=== PATIENT | female | born 2000 | race Caucasian/White ===

== ENCOUNTER → 2019-03-05 12:56 | Outpatient (BNVA) | payer BC, SELFPAY | PROVIDERS: Family Provider Nurse Practitioner Family; PCP Nurse Practitioner Family; Visit Provider Counselor Professional | DX: F33.2 Major depressive disorder, recurrent severe without psychotic features (principal); F41.1 Generalized anxiety disorder | CPT/HCPCS: 90834 ==

== ENCOUNTER → 2019-04-01 14:45 | Outpatient (BNVA) | payer BC, SELFPAY | PROVIDERS: Family Provider Nurse Practitioner Family; PCP Nurse Practitioner Family; Visit Provider Counselor Professional | DX: F33.2 Major depressive disorder, recurrent severe without psychotic features (principal); F41.1 Generalized anxiety disorder | CPT/HCPCS: 90834 ==

== ENCOUNTER → 2019-04-29 14:48 | Outpatient (BNVA) | payer BC, SELFPAY | PROVIDERS: Family Provider Nurse Practitioner Family; PCP Nurse Practitioner Family; Visit Provider Counselor Professional | DX: F41.1 Generalized anxiety disorder (principal) | CPT/HCPCS: 90834 ==

== ENCOUNTER → 2019-12-02 14:14 | Outpatient (BNVA) | payer BC, SELFPAY | PROVIDERS: Family Provider Nurse Practitioner Family; PCP Nurse Practitioner Family; Visit Provider Nurse Practitioner | DX: R00.2 Palpitations (principal); F41.9 Anxiety disorder, unspecified; F32.9 Major depressive disorder, single episode, unspecified | CPT/HCPCS: 80053; 84443; 85025; 86800 ==

== ENCOUNTER → 2021-05-31 13:12 | Outpatient (BNVA) | payer OTHER, SELFPAY | PROVIDERS: PCP Family Medicine; Visit Provider Nurse Practitioner Psychiatric/Mental Health | DX: Z03.89 Encounter for observation for other suspected diseases and conditions ruled out (principal); Z79.899 Other long term (current) drug therapy | CPT/HCPCS: 80053; 80061; 83036; 84443 ==

== ENCOUNTER → 2021-07-05 11:31 | Outpatient (BNVA) | payer OTHER, SELFPAY | PROVIDERS: PCP Family Medicine; Visit Provider Nurse Practitioner Family | DX: M25.572 Pain in left ankle and joints of left foot (principal); M25.472 Effusion, left ankle | CPT/HCPCS: 73610 ==

== ENCOUNTER → 2021-08-16 11:05 | Outpatient (BNVA) | payer OTHER, SELFPAY | PROVIDERS: PCP Family Medicine; Visit Provider Nurse Practitioner Family | DX: J02.9 Acute pharyngitis, unspecified (principal); R05.9 Cough, unspecified; Z20.822 Contact with and (suspected) exposure to COVID-19 | CPT/HCPCS: 87635 ==

== ENCOUNTER → 2022-01-17 14:26 | Outpatient (BNVA) | payer OTHER, SELFPAY | PROVIDERS: PCP Family Medicine; Visit Provider Nurse Practitioner Family | DX: M54.9 Dorsalgia, unspecified (principal); B37.31 Acute candidiasis of vulva and vagina; R10.9 Unspecified abdominal pain; R19.7 Diarrhea, unspecified | CPT/HCPCS: 81000; 81025 ==

== ENCOUNTER → 2022-04-24 08:51 | Outpatient (BNVA) | payer BC, MEDICAID, SELFPAY | PROVIDERS: PCP Family Medicine; Visit Provider Nurse Practitioner Family | DX: R05.9 Cough, unspecified (principal); J06.9 Acute upper respiratory infection, unspecified | CPT/HCPCS: 87486; 87581; 87633 ==

== ENCOUNTER → 2022-06-04 10:58 | Outpatient (BNVA) | payer BC, MEDICAID, SELFPAY | PROVIDERS: PCP Family Medicine; Visit Provider Nurse Practitioner Family | DX: R05.9 Cough, unspecified (principal); J06.9 Acute upper respiratory infection, unspecified | CPT/HCPCS: 87486; 87581; 87633 ==

== ENCOUNTER → 2022-07-22 15:59 | Outpatient (BNVA) | payer BC, SELFPAY | PROVIDERS: PCP Family Medicine; Visit Provider Nurse Practitioner Psychiatric/Mental Health | DX: Z79.899 Other long term (current) drug therapy (principal); F33.1 Major depressive disorder, recurrent, moderate; F41.1 Generalized anxiety disorder; F42.9 Obsessive-compulsive disorder, unspecified | CPT/HCPCS: 81025 ==

== ENCOUNTER → 2022-09-04 08:22 | Outpatient (BNVA) | payer BC, SELFPAY | PROVIDERS: PCP Family Medicine; Visit Provider Nurse Practitioner Psychiatric/Mental Health | DX: F42.9 Obsessive-compulsive disorder, unspecified (principal); Z79.899 Other long term (current) drug therapy | CPT/HCPCS: 80053; 80061; 83036 ==

== ENCOUNTER → 2023-03-13 13:19 | Outpatient (BNVA) | payer BC, MEDICAID, SELFPAY | PROVIDERS: PCP Family Medicine; Visit Provider Nurse Practitioner Family | DX: R05.9 Cough, unspecified (principal); J98.8 Other specified respiratory disorders | CPT/HCPCS: 87400; 87426 ==

== ENCOUNTER → 2023-05-20 15:15 | Outpatient (BNVA) | payer SELFPAY | PROVIDERS: PCP Family Medicine; Visit Provider Nurse Practitioner Family | DX: R50.9 Fever, unspecified (principal); R05.9 Cough, unspecified; J06.9 Acute upper respiratory infection, unspecified; R05.2 Subacute cough | CPT/HCPCS: 71046; 87400; 87426 ==

== ENCOUNTER → 2024-01-05 10:25 | Outpatient (BNVA) | payer BC, SELFPAY | PROVIDERS: PCP Family Medicine; Visit Provider Clinical Nurse Specialist Adult Health | DX: J02.9 Acute pharyngitis, unspecified (principal); J06.9 Acute upper respiratory infection, unspecified | CPT/HCPCS: 87071; 87400; 87426; 87880 ==

== ENCOUNTER → 2024-03-31 09:51 | Outpatient (BNVA) | payer BC, SELFPAY | PROVIDERS: PCP Family Medicine; Visit Provider Clinical Nurse Specialist Adult Health | DX: J06.9 Acute upper respiratory infection, unspecified (principal) | CPT/HCPCS: 87400 ==

== ENCOUNTER 2024-04-14 18:00 | Emergency (ER) | payer BC, MEDICAID, SELFPAY ==
[2024-04-14 18:07] VITALS: BP 108/69; PULSE 145; RESP 20; TEMP 36.9; O2SAT 96; BMI 37.3
--- NOTE | 2024-04-14 18:15 | ECG_ITS ---
[employer] Test Date: 2024-04-14 Pat Name: Jessika Uribe Department: Room: Gender: Female Environmental Aid: : 2000 Requested By: Carol Dixon Order Number: [id number] Emanuel MD: Mohsen Moore M.D. Measurements Intervals [place] Rate: 131 P: 50 KS: 122 QRS: 89 QRSD: 85 T: -60 QT: 333 QTc: 492 Interpretive Statements SINUS TACHYCARDIA ST DEVIATION AND MODERATE T-WAVE ABNORMALITY, CONSIDER ANTEROLATERAL ISCHEMIA [-0.1+ mV T-WAVE IN V3-V6] ST DEVIATION AND MODERATE T-WAVE ABNORMALITY, CONSIDER INFERIOR ISCHEMIA [-0.1+ mV T-WAVE IN II/aVF] Compared to ECG 09/14/2016 23:40:48 T-wave abnormality now present Possible ischemia now present Sinus rhythm no longer present Electronically Signed On 04-14-2024 18:17:09 AGRICULTURAL EXTENSION OFFICER by Mohsen Moore M.D. [email or web address]
[2024-04-14 18:48] LABS: Basophils % 0.1 %; Hematocrit 48.4 % (36-47); Lymphocytes # 0.5 10^3/uL (0.8-4.8); Lymphocytes % 5.4 %; Mean Corpuscular HGB Conc 32.9 g/dL (30-55); Mean Corpuscular Hemoglobin 26.5 pg (27-33); Mean Corpuscular Volume 80.7 fl (85-98); Mean Platelet Volume 9.4 fL (7.4-10.4); Monocytes # 0.7 10^3/uL (0.2-0.9); Monocytes % 7.1 %; Neutrophils # 8.23 10^3/uL (1.8-7.7); Nucleated Red Blood Cells % 0 %; Platelet Count 340 10^3/cmm (157-399); Red Cell Distribution Width 12.3 % (12.1-15.1); White Blood Count 9.46 10^3/uL (3.29-11.43)
[2024-04-14 19:05] LABS: HCG, Serum Qual Negative (Negative)
[2024-04-14 19:09] VITALS: BP 124/91; PULSE 110; RESP 16; O2SAT 98
[2024-04-14 19:13] LABS: Alanine Aminotransferase 22 U/L (0-33); Alkaline Phosphatase 73 U/L (35-105); Anion Gap 19.4 (5-19); Aspartate Amino Transferase 21 U/L (0-32); Blood Urea Nitrogen 13 mg/dL (6-20); Calcium 8.2 mg/dL (8.5-10.5); Carbon Dioxide 17 mmol/L (22-29); Chloride 102 mmol/L (98-107); Globulin 2.8 g/dL (1.3-4.6); Glucose 109 mg/dL (65-115); Lipase 20 U/L (13-60); Magnesium 1.8 mg/dL (1.7-2.3); Osmolality Calculated 281 mOsm/kg (285-295); Potassium 3.4 mmol/L (3.5-5.1); Sodium 135 mmol/L (136-145); Total Bilirubin 0.5 mg/dL (0.15-1.2); Total Protein 6.8 g/dL (6.6-8.7)
--- NOTE | 2024-04-14 19:19 | ED_ITS ---
HPI - Abdominal Pain 2 General: Chief Complaint: Abdominal Pain Stated Complaint: severe abd pain n/v/d Time Seen by Provider: 04/14/24 19:16 History of Present Illness: Patient presents to the ER with lower abdominal pain and pelvic cramping along with nausea vomiting. This started yesterday morning has been constant but has waxed and waned in severity. Patient was seen at the [facility] today and given a Toradol shot and a Zofran tablet with that shot did not help the pain any and she vomited the tablet up so she is still nauseous. She was given a test which was negative. Patient has had no abdominal surgery. Related Data Home Medications ?Medication ?Instructions ?Recorded ?Confirmed levothyroxine 13 mcg capsule 25 mcg PO DAILY 01/31/21 04/14/24 Previous Rx's ?Medication ?Instructions ?Recorded fluticasone propionate 50 2 spray intranasal DAILY #15 .8 mL 02/09/20 mcg/actuation nasal spray,suspension (Allergy Relief (fluticasone)) cetirizine 10 mg tablet (Zyrtec) 10 mg PO DAILY #30 ta bs 02/29/20 buspirone 10 mg tablet 10 mg PO BID #180 tabs 01/08 citalopram 20 mg tablet (Celexa) 20 mg PO .morning #90 tabs 01/09/24 hydrocodone 5 mg-acetaminophen 325 1 tab PO Q6H PRN pa in #14 tabs 04/14/24 mg tablet ondansetron 4 mg disintegrating 4 mg PO Q8H PRN nausea and 04/14/24 tablet vomiting #30 tabs Allergies Allergy/AdvReac Type Severity Reaction Status Date / Time No Known Allergies Allergy Verified 04/14/24 13:18 Review of Systems 2 General: Reports: 10 or more systems reviewed and unremarkable except in HPI and below PFSH ED 2 PFSH: Medical History Obsessive-compulsive disorder with good or fair insight Generalized anxiety disorder Major depressive disorder, recurrent episode, moderate with anxious distress Psychiatric care Environmental and seasonal allergies Surgical History History of oral surgery History of sinus surgery History of tonsillectomy and adenoidectomy Family History Other Cancer Hypertension Stroke Denies family history of Diabetes Dementia Social History Smoking and tobacco/nicotine status: never used tobacco/nicotine Second hand smoke exposure: No Alcohol intake: never Substance/Drug Use: never Adopted: No Caregiver/support person: No Lives independently: Yes Household members: family Housing: House Marital status: Single Number of children: 0 service: No 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al status: unemployed and student 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: [employer] Student Do you think of yourself as: Straight/Heterosexual Current gender identity: Female Physical Exam 2 Const: COMMON NORMALS: no acute distress, average body habitus, patient oriented x3, no limitations, healthy appearing, alert and well nourished HENMT: COMMON NORMALS: normocephalic, atraumatic, hearing grossly normal bilaterally, external ears normal, Normal external nose present, moist oral mucous membranes and oropharynx normal HEAD & SCALP: normocephalic and atraumatic NOSE: Normal external nose present EXTERNAL EAR: Yes external ears normal Neck/C-Spine: COMMON NORMALS: full ROM, no lymphadenopathy, supple, no meningeal signs, no JVD and Thyroid normal THYROID: Thyroid normal Chest: COMMONS NORMALS: normal inspection of the chest and normal palpation of entire chest wall Resp: COMMON NORMALS: normal respiratory effort, No retractions, No use of accessory muscles and clear to auscultation bilaterally AUSCULTATION: clear to auscultation bilaterally Cardio: COMMON NORMALS: no JVD, regular rhythm, S1 normal heart sound present, S2 normal heart sound present, No gallops present (Cardio), No clicks present (Cardio) and No murmurs present (Cardio); negative for regular rate (Mildly tachycardic) RATE: abnormal rate (Mildly tachycardic) RHYTHM: regular rhythm HEART SOUNDS: S1 normal heart sound present and S2 normal heart sound present GI: COMMON NORMALS: Normal to inspection, nondistended, normoactive bowel sounds present, Soft to palpation, No hepatosplenomegaly present and no masses; negative for non-tender (Mild tender to palpation right lower quadrant and low epigastric area) PALPATION: Yes Soft to palpation and Yes No hepatosplenomegaly present Neuro: COMMON NORMALS: patient oriented x3 SENSORIUM/ORIENTATION: Yes alert MENINGEAL SIGNS: Yes no meningeal signs Course 2 Vital Signs: Vital signs: Vital Signs Temperature 98.4 F 04/14/24 18:07 Pulse Rate 118 H 04/14/24 20:23 Respiratory Rate 18 04/14/24 20:23 Blood Pressure 130/81 04/14/24 19:44 Pulse Oximetry 98 04/14/24 20:23 Oxygen Delivery Me thod Room Air 04/14/24 19:09 MDM - Abdominal Pain Medical Decision Making Patient had a contrast CT scan of the abdomen pelvis showed gastroenteritis, right ovarian cyst otherwise unremarkable. Lab work was fairly benign. Patient was given 4 mg of morphine 4 mg Zofran and is feeling much better. Patient will be orally challenged with the fluid and discharged home. Medical Records I reviewed the patient's medical records. Lab Data I reviewed the patient's lab results. 04/14/24 18:34 04/14/24 18:34 Labs/Radiology: Radiology Impressions Abdomen/Pelvis CT 04/14/24 19:19 IMPRESSION: 1. Nondilated, fluid-filled, mildly hyperemic loops of small bowel with liquefied stool and air-fluid levels in the colon. Gastroenteritis could produce this appearance. 2. Additional findings, as above. Laboratory Results WBC 9.46 10^3/uL (3.29-11.43) 04/14/24 18:34 RBC 6.00 10^6/uL (3.85-5.65) H 04/14/24 18:34 Hgb 15.90 g/dL (11.27-16.99) 04/14/24 18:34 Hct 48.4 % (36-47) H 04/14/24 18:34 MCV 80.7 fl (85-98) L 04/14/24 18:34 MCH 26.5 pg (27-33) L 04/14/24 18:34 MCHC 32.9 g/dL (30-55) 04/14/24 18:34 RDW 12.3 % (12.1-15.1) 04/14/24 18:34 Plt Count 340 10^3/cmm (157-399) 04/14/24 18:34 MPV 9.4 fL (7.4-10.4) 04/14/24 18:34 Neut % (Auto) 87.0 % 04/14/24 18:34 Lymph % (Auto) 5.4 % 04/14/24 18:34 Morrison % (Auto) 7.1 % 04/14/24 18:34 Eos % (Auto) 0.0 % 04/14/24 18:34 Baso % (Auto) 0.1 % 04/14/24 18:34 Neut # (Auto) 8.23 10^3/uL (1.8-7.7) H 04/14/24 18:34 Lymph # (Auto) 0.5 10^3/uL (0.8-4.8) L 04/14/24 18:34 Morrison # (Auto) 0.7 10^3/uL (0.2-0.9) 04/14/24 18:34 Eos # (Auto) 0.0 10^3/uL (0.0-0.8) 04/14/24 18:34 Baso # (Auto) 0.0 10^3/uL (0.0-0.1) 04/14/24 18:34 Nucleated RBC % (auto) 0 % 04/14/24 18:34 Nucleated RBCs # 0.0 /100WBC 04/14/24 18:34 Sodium 135 mmol/L (136-145) L 04/14/24 18:34 Potassium 3.4 mmol/L (3.5-5.1) L 04/14/24 18:34 Chloride 102 mmol/L (98-107) 04/14/24 18:34 Carbon Dioxide 17 mmol/L (22-29) L 04/14/24 18:34 Anion Gap 19.4 (5-19) H 04/14/24 18:34 BUN 13 mg/dL (6-20) 04/14/24 18:34 Creatinine 0.7 mg/dL (0.5-0.9) 04/14/24 18:34 GFR Calculation 102.0 mL/min (90-130) 04/14/24 18:34 Glucose 109 mg/dL (65-115) 04/14/24 18:34 Calculated Osmolality 281 mOsm/kg (285-295) L 04/14/24 18:34 Calcium 8.2 mg/dL (8.5-10.5) L 04/14/24 18:34 Magnesium 1.8 mg/dL (1.7-2.3) 04/14/24 18:34 Total Bilirubin 0.5 mg/dL (0.15-1.2) 04/14/24 18:34 AST 21 U/L (0-32) 04/14/24 18:34 ALT 22 U/L (0-33) 04/14/24 18:34 Alkaline Phosphatase 73 U/L (35-105) 04/14/24 18:34 Total Protein 6.8 g/dL (6.6-8.7) 04/14/24 18:34 Albumin 4.0 g/dL (3.5-5.2) 04/14/24 18:34 Globulin 2.8 g/dL (1.3-4.6) 04/14/24 18:34 Lipase 20 U/L (13-60) 04/14/24 18:34 HCG, Qual Negative (Negative) 04/14/24 18:34 Urine Color Dark yellow (Yellow) A 04/14/24 19:00 Urine Appearance Clear (CLEAR) 04/14/24 19: Urine pH 6.0 (5-7) 04/14/24 19:00 Ur Specific [place] 1.020 (1.005-1.030) 04/14/24 19:00 Urine Protein 1+ (Negative) A 04/14/24 19:00 Urine Glucose (UA) Negative (Normal) 04/14/24 19:00 Urine Ketones Trace (Negative) 04/14/24 19:00 Urine Blood Negative (Negative) 04/14/24 19:00 Urine Nitrate Negative (Negative) 04/14/24 19: Urine Bilirubin Negative (Negative) 04/14/24 19: Urine Urobilinogen 1.0 mg/dL (Negative) 04/14/24 19:00 Ur Leukocyte Esterase Trace (Negative) A 04/14/24 19:00 Urine RBC 0-2 /hpf (0-2) 04/14/24 19:00 Urine WBC 0-5 /hpf (0-5) 04/14/24 19:00 Ur Squamous Epith Cells 6-10 /hpf (0-5) 04/14/24 19:00 Amorphous Sediment Not Reportable 04/14/24 19:00 Urine Bacteria Trace /hpf (NONE) 04/14/24 19:00 Hyaline Casts 2.05 /lpf 04/14/24 19:00 Coronavirus (PCR) Negative (Negative) 04/14/24 19:41 Influenza A (PCR) Negative (Negative) 04/14/24 19:41 Influenza Type B (PCR) Negative (Negative) 04/14/24 19:41 RSV (PCR) Negative (Negative) 04/14/24 19:41 All radiology interpretation(s) finalized by discharge Discharge Plan Discharge Patient Disposition: Home Clinical Impression: Cyst of right ovary, Gastroenteritis Abdominal pain Qualifiers: Abdominal location: right lower quadrant Qualified Code(s): R10.31 - Right lower quadrant pain Condition: Stable Prescriptions: New hydrocodone-acetaminophen 5-325 mg tablet 1 tab PO Q6H PRN (Reason: pain) Qty: 14 0RF No Action levothyroxine 13 mcg capsule 25 mcg PO DAILY buspirone 10 mg tablet 10 mg PO BID Qty: 180 2RF Rx Instructions: Take one tablet twice per day, 8 am and 4 pm citalopram [Celexa] 20 mg tablet 20 mg PO .morning Qty: 90 2RF Rx Instructions: Take one tablet every morning ondansetron 4 mg tablet,disintegrating 4 mg PO Q8H PRN (Reason: nausea and vomiting) Qty: 30 0RF fluticasone propionate [Allergy Relief (fluticasone)] 50 mcg/actuation spray,suspension 2 spray INTRANASAL DAILY Qty: 15.8 5RF cetirizine [Zyrtec] 10 mg tablet 10 mg PO DAILY Qty: 30 2RF Discharge Orders: Discharge ED (Routine); Ordered 04/14/24 Ordered By: Cornelius Mueller Referrals: Willis Edwards MD [Primary Care Provider] - 1 week Patient Instructions: Ovarian Cyst (ED), Abdominal Pain (ED), Opioid Safety, Pain Management Activity Restrictions/Additional Instructions: Thank you for choosing [facility] for your healthcare needs today. Please realize that you were seen in the emergency department and that we are providing you with an emergency medical screening exam and this may not be a complete and all exclusive of all testing and/or medical workup we may need to determine your element or severity of your illness. It is very important that you follow-up as instructed with your primary care provider or specialist for the additional evaluation and to discuss your medical treatment plan. You may return to the emergency department should you have concerns or if your condition changes or worsens in any way. Print Language: Dominican Coding Level of Care Code ED Support Manager for Leia Donohue
--- NOTE | 2024-04-14 19:19 | CTR_ITS ---
PROCEDURE INFORMATION: Exam: CT Abdomen And Pelvis With Contrast Exam date and time: 04/14/2024 7:58 PM Age: 23 years old Clinical indication: Abdominal pain; Generalized; Additional info: Right lower quadrant abdominal pain nausea vomiting TECHNIQUE: Imaging protocol: Computed tomography of the abdomen and pelvis with contrast. Axial, coronal and sagittal reformatted images were created and reviewed. Radiation optimization: All CT scans at this facility use at least one of these dose optimization techniques: automated exposure control; mA and/or kV adjustment per patient size (includes targeted exams where dose is matched to clinical indication); or iterative reconstruction. Contrast material: OMNIPAQUE 350; Contrast volume: 100 ml; Contrast route: INTRAVENOUS (IV); COMPARISON: CR XR chest 2V* [id number] 05/20/2023 3:25 PM RADIATION DOSE METRICS: Total DLP (mGy-cm): 946.63 FINDINGS: Liver: Unremarkable. Gallbladder and biliary ducts: No radiodense gallstones. No biliary ductal dilatation. Pancreas: Unremarkable. Spleen: Unremarkable. Adrenal glands: Normal. No mass. Kidneys and ureters: No mass. No radiodense calculi. No hydronephrosis. Stomach and bowel: Nondilated, fluid-filled, mildly hyperemic loops of small bowel with liquefied stool and air-fluid levels in the colon. No definite bowel wall thickening. No obstruction. No pneumatosis. Appendix: Normal. Intraperitoneal space: Trace nonspecific free pelvic fluid, likely physiologic. No organized fluid collection. No free air. Vasculature: Unremarkable. No aneurysm. Lymph nodes: No pathologically enlarged lymph nodes. Urinary bladder: Unremarkable as visualized. Reproductive: Probable involuting right ovarian corpus luteal cyst. Bones/joints: No acute osseous abnormality. Mild degenerative changes. Soft tissues: Unremarkable. CT/CT abdomen pelvis w con* [id number] IMPRESSION: 1. Nondilated, fluid-filled, mildly hyperemic loops of small bowel with liquefied stool and air-fluid levels in the colon. Gastroenteritis could produce this appearance. 2. Additional findings, as above.
[2024-04-14 19:24] LABS: Bilirubin Urine Negative (Negative); Blood Urine Negative (Negative); Glucose Urine UA Negative (Normal); Ketones Urine Trace (Negative); Leukocyte Esterase Urine Trace (Negative); Nitrate Urine Negative (Negative); Protein Urine 1+ (Negative); Urine Appearance Clear (CLEAR); Urine Color Dark Yellow (Yellow)
[2024-04-14 19:29] LABS: Add Urine Culture? No; Add Urine Microscopic? YES; Bacteria Urine Trace /hpf; Hyaline Casts Urine 2.05 /lpf; RBC Urine 0-2 /hpf (0-2); WBC Urine 0-5 /hpf (0-5)
[2024-04-14 19:44] VITALS: BP 130/81; RESP 18; O2SAT 99
[2024-04-14] MEDS: morphine 4 mg/mL SDV 1 mL IVP (19:45)
[2024-04-14] MEDS: ondansetron 2 mg/ML SDV 2 mL 4 MG IVP (19:46)
[2024-04-14] MEDS: iohexol 350 mg/mL 500 mL Btl (per mL) IV (20:02)
[2024-04-14 20:23] VITALS: PULSE 118; RESP 18; O2SAT 98
[2024-04-14 20:29] LABS: Covid PCR NEGATIVE (Negative); Influenza A NEGATIVE (Negative); Influenza B NEGATIVE (Negative); Respiratory Syncytial Virus Ce NEGATIVE (Negative)
--- NOTE | 2024-04-14 20:45 | PC.NURSE ---
pt given water to drink for a fluid challenge at 2039
[2024-04-14 21:05] VITALS: BP 128/87; PULSE 105; RESP 18; O2SAT 98
[2024-04-14] MEDS: HYDROcodone-acetaminophen 5-325 mg Tablet 2 TAB PO (21:07)
== END 2024-04-14 21:08 | disposition home or self-care (01) ==
PROVIDERS: Emergency Provider Emergency Medicine; PCP Family Medicine
DX: N83.201 Unspecified ovarian cyst, right side (principal); K52.9 Noninfective gastroenteritis and colitis, unspecified; R10.31 Right lower quadrant pain; Z11.52 Encounter for screening for COVID-19
CPT/HCPCS: 36415; 74177; 80053; 81001; 81025; 83690; 83735; 84703; 85025; 87637; 93005; 96374; 96375; 99285; J2270; J2405

== ENCOUNTER 2025-02-28 17:33 | Emergency (ER) | payer MEDICAID, SELFPAY ==
[2025-02-28 17:36] VITALS: BP 123/86; PULSE 100; TEMP 36.5; O2SAT 99; BMI 38.0
--- OUTSIDE RECORDS SUMMARY | 2025-02-28 17:42 | XMS_ITS | Encounter Summary ---
Author Organization [facility] Address [address] [place] [address] Care Team Providers Care Laborer Tree Tapping Name Role Phone Shreyas Robertson DO Primary Care Provider [phone] Encounter Details Date Type Department Care Team (Latest Contact Info) Description 07/16/2006 Outpatient Historical [facility] [address] [place] [address] Concepcion Cortés, DYEING MACHINE FEEDER [address] [place] [address] Chronic Tonsillitis (Primary Dx); Hypertrophy Tonsils/Adenoids Social History Tobacco Use Types Packs/Day Years Used Date Smoking Tobacco: Never Assessed Comments Unknown Sex and Gender Information Value Date Recorded Sex Assigned at Not on file Legal Sex Female 3:29 AM APARTMENT LEASING AGENT Gender Identity Not on file Sexual Orientation Not on file documented as of this encounter Plan of Treatment Not on file documented as of this encounter Visit Diagnoses Diagnosis Chronic tonsillitis- Primary Hypertrophy tonsils/adenoids Hypertrophy of tonsil with adenoids documented in this encounter Care Teams Laborer Tree Tapping Relationship Specialty Start Date End Date Shreyas Robertson DO [address] [place] [address] PCP - General Family Practice 08/03/12 documented as of this encounter
--- OUTSIDE RECORDS SUMMARY | 2025-02-28 17:42 | XMS_ITS | Encounter Summary ---
Author Organization [facility] Address [address] [place] [address] Care Team Providers Care Physicist Light And Optics Name Role Phone Shreyas Robertson DO Primary Care Provider [phone] Encounter Details Date Type Department Care Team (Latest Contact Info) Description 02/15/2004 Outpatient Historical [facility] Family Medicine- [address] [place] [phone] Shelby Arredondo NP NO ADDRESS ON FILE ACUTE BRONCHITIS (Primary Dx); OTITIS MEDIA NOS; ASTHMA UNSPECIFIED Social History Tobacco Use Types Packs/Day Years Used Date Smoking Tobacco: Never Assessed Comments Unknown Sex and Gender Information Value Date Recorded Sex Assigned at Not on file Legal Sex Female 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
--- OUTSIDE RECORDS SUMMARY | 2025-02-28 17:42 | XMS_ITS | Encounter Summary ---
Author Organization [facility] Address [address] [place] [address] Care Team Providers Care Media Liaison Officer Name Role Phone Shreyas Robertson DO Primary Care Provider [phone] Encounter Details Date Type Department Care Team (Latest Contact Info) Description 04/21/2006 Outpatient Historical [facility] Family Medicine [address] [phone] Shelby Arredondo NP NO ADDRESS ON FILE Acute Bronchitis (Primary Dx); Unspecified Otitis Media; Acute Sinusitis, Unspecified; Hypertrophy Tonsils Social History Tobacco Use Types Packs/Day Years Used Date Smoking Tobacco: Never Assessed Comments Unknown Sex and Gender Information Value Date Recorded Sex Assigned at Not on file Legal Sex Female 3:29 AM MDM DEVELOPER Gender Identity Not on file Sexual Orientation Not on file documented as of this encounter Plan of Treatment Not on file documented as of this encounter Visit Diagnoses Diagnosis Acute bronchitis- Primary Unspecified otitis media Acute sinusitis, unspecified Hypertrophy tonsils Hypertrophy of tonsils alone documented in this encounter Care Teams Media Liaison Officer Relationship Specialty Start Date End Date Shreyas Robertson DO [address] [place] [address] PCP - General Family Practice 08/03/12 documented as of this encounter
--- OUTSIDE RECORDS SUMMARY | 2025-02-28 17:42 | XMS_ITS | Encounter Summary ---
Author Organization [facility] Address [address] [place] [address] Care Team Providers Care Cell Attendant Helper Name Role Phone Shreyas Robertson DO Primary Care Provider [phone] Encounter Details Date Type Department Care Team (Latest Contact Info) Description 05/02/2006 Outpatient Historical [facility] Th[facility] [address] [place] [address] Concepcion Cortés, SPRING FORMER [address] [place] [address] Chronic Tonsillitis (Primary Dx); Hypertrophy Tonsils/Adenoids Social History Tobacco Use Types Packs/Day Years Used Date Smoking Tobacco: Never Assessed Comments Unknown Sex and Gender Information Value Date Recorded Sex Assigned at Not on file Legal Sex Female 3:29 AM INTELLIGENCE RESEARCH SPECIALIST Gender Identity Not on file Sexual Orientation Not on file documented as of this encounter Plan of Treatment Not on file documented as of this encounter Visit Diagnoses Diagnosis Chronic tonsillitis- Primary Hypertrophy tonsils/adenoids Hypertrophy of tonsil with adenoids documented in this encounter Care Teams Cell Attendant Helper Relationship Specialty Start Date End Date Shreyas Robertson DO [address] [place] [address] PCP - General Family Practice 08/03/12 documented as of this encounter
--- OUTSIDE RECORDS SUMMARY | 2025-02-28 17:42 | XMS_ITS | Encounter Summary ---
Author Organization [facility] Address [address] [place] [address] Care Team Providers Care Tonnage Compilation Clerk Name Role Phone Shreyas Robertson DO Primary Care Provider [phone] Encounter Details Date Type Department Care Team (Latest Contact Info) Description 08/01/2006 Outpatient Historical [facility] Head [facility] Ne[facility] Surgery-[address] [place] [phone] Kirill Funez MD NO ADDRESS ON FILE Chronic Tonsillitis (Primary Dx); Hypertrophy Tonsils/Adenoids Social History Tobacco Use Types Packs/Day Years Used Date Smoking Tobacco: Never Assessed Comments Unknown Sex and Gender Information Value Date Recorded Sex Assigned at Not on file Legal Sex Female 3:29 AM CORRESPONDENCE CLERK Gender Identity Not on file Sexual Orientation Not on file documented as of this encounter Plan of Treatment Not on file documented as of this encounter Visit Diagnoses Diagnosis Chronic tonsillitis- Primary Hypertrophy tonsils/adenoids Hypertrophy of tonsil with adenoids documented in this encounter Care Teams Tonnage Compilation Clerk Relationship Specialty Start Date End Date Shreyas Robertson DO [address] [place] [address] PCP - General Family Practice 08/03/12 documented as of this encounter
--- OUTSIDE RECORDS SUMMARY | 2025-02-28 17:42 | XMS_ITS | Encounter Summary ---
Author Organization [facility] Address [address] [place] [address] Care Team Providers Care Manufacturing Plant Manager Name Role Phone Shreyas Robertson DO Primary Care Provider [phone] Encounter Details Date Type Department Care Team (Latest Contact Info) Description 02/12/2006 Outpatient Historical [facility] Family Medicine- [address] [place] [phone] Shelby Arredondo NP NO ADDRESS ON FILE Acute Tonsillitis (Primary Dx); Hypertrophy Tonsils; Acute Upper Respiratory Infections of Unspecified Site Social History Tobacco Use Types Packs/Day Years Used Date Smoking Tobacco: Never Assessed Comments Unknown Sex and Gender Information Value Date Recorded Sex Assigned at Not on file Legal Sex Female 3:29 AM [employer] OFFICER Gender Identity Not on file Sexual Orientation Not on file documented as of this encounter Plan of Treatment Not on file documented as of this encounter Visit Diagnoses Diagnosis Acute tonsillitis- Primary Hypertrophy tonsils Hypertrophy of tonsils alone Acute upper respiratory infections of unspecified site documented in this encounter Care Teams Manufacturing Plant Manager Relationship Specialty Start Date End Date Shreyas Robertson DO [address] [place] [address] PCP - General Family Practice 08/03/12 documented as of this encounter
--- OUTSIDE RECORDS SUMMARY | 2025-02-28 17:42 | XMS_ITS | Encounter Summary ---
Author Organization [facility] Address [address] [place] [address] Care Team Providers Care Oil Rigger Name Role Phone Shreyas Robertson DO Primary Care Provider [phone] Encounter Details Date Type Department Care Team (Latest Contact Info) Description 03/20/[address] [facility] Family Medicine [address] [place] [address] Shelby Arredondo NP NO ADDRESS ON FILE Mycoplasma Infection (Primary Dx); Fever; Influenza with Other Respiratory Manifestations; Cough Social History Tobacco Use Types Packs/Day Years Used Date Smoking Tobacco: Never Assessed Comments Unknown Sex and Gender Information Value Date Recorded Sex Assigned at Not on file Legal Sex Female 3:29 AM TECHNICAL AIDE Gender Identity Not on file Sexual Orientation Not on file documented as of this encounter Plan of Treatment Not on file documented as of this encounter Visit Diagnoses Diagnosis Mycoplasma infection in conditions classified elsewhere and of unspecified site- Primary Fever and other physiologic disturbances of temperature regulation Influenza with other respiratory manifestations Cough documented in this encounter Care Teams Oil Rigger Relationship Specialty Start Date End Date Shreyas Robertson DO [address] [place] [address] PCP - General Family Practice 08/03/12 documented as of this encounter
--- OUTSIDE RECORDS SUMMARY | 2025-02-28 17:42 | XMS_ITS | Clinical Summary ---
Author Organization [employer] Address [address] [facility] Attn: Epic Prelude ADT DEREK ALMONTE [address] Care Team Providers Care A And P Mechanic Name Role Phone Shreyas Robertson DO Primary Care Provider [phone] Allergies No known active allergies Medications fluticasone propionate (FLONASE) 50 mcg/spray [place], Suspension nasal inhaler Administer 2 Sprays in each nostril daily. 16 Gram 5 5 Active albuterol sulfate 90 mcg/Actuation inhaler Take 2 Puffs by inhalation every 6 hours as needed for Shortness of Breath. 5 Active naproxen sodium (ALEVE) 220 mg Tablet Take 220 mg by mouth every 4 hours as needed for Pain, Moderate. 5 Active Active Problems Problem Noted Date Diagnosed Date Chronic maxillary sinusitis 07/23/2012 Allergic rhinitis 06/07/2009 Chronic pansinusitis 06/07/2009 Hypertrophy of nasal turbinates 06/07/2009 Immunizations Immunization Administration Dates Next Due (M-M-R II/PRIORIX)(12 MO UP) MEASLES, MUMPS AND RUBELLA VIRUS VACCINE, 0.5 ML IM/SUBCUT 06/03/2003,07/19/1999 Dt Dtp Dtap Vaccine 03/24/2003, 0,1998,1998,1998 HIB, Unspecified Formulation 10/25/1999, 1998,1998,1998 Hepatitis B Vaccine 01/18/1999,1998,1998 IPV/OPV 04/22/2003, 0,1998,1998 Social History Tobacco Use Types Packs/Day Years Used Date Smoking Tobacco: Never Alcohol Use Standard Drinks/Week Comments No 0 (1 standard drink = 0.6 oz pur e alcohol) Comments Unknown Sex and Gender Information Value Date Recorded Sex Assigned at Not on file Legal Sex Female 7:25 AM INTERNET PROJECT MANAGER Gender Identity Not on file Sexual Orientation Not on file Last Filed Vital Signs Vital Sign Reading Time Taken Comments Blood Pressure 109/63 02/28/2015 1:11 PM INTERNET PROJECT MANAGER Pulse 73 02/28/2015 1:11 PM INTERNET PROJECT MANAGER Temperature - - Respiratory Rate - - Oxygen Saturation - - Inhaled Oxygen Concentration - - Weight 73 kg (161 lb) 02/28/2015 1:11 PM INTERNET PROJECT MANAGER Height 160 cm (5' 3 ) 02/28/2015 1:11 PM INTERNET PROJECT MANAGER Body Mass Index 28.52 02/28/2015 1:11 PM INTERNET PROJECT MANAGER Plan of Treatment Health Maintenance Due Date Last Done Comments DTAP/TDAP/TD VACCINES (6 - Tdap) 2009 03/24/2003, 08/09/1999, 1998, Additional history exists HPV VACCINES (1 - 3-dose series) 2013 CERVICAL CANCER SCREENING 05/11/2019 HPV/Cotest (21-29) 05/11/2019 PAP SMEAR 05/11/2019 INFLUENZA VACCINE (#1) 2024 HEPATITIS B VACCINES Completed 01/18/1999, 1998, 1998 Care Teams A And P Mechanic Relationship Specialty Start Date End Date Shreyas Robertson DO [address] [place] [address] PCP - General Family Practice 08/03/12
--- OUTSIDE RECORDS SUMMARY | 2025-02-28 17:42 | XMS_ITS | Encounter Summary ---
Author Organization [facility] Address [address] [place] [address] Care Team Providers Care Forest Ranger Technician Name Role Phone Shreyas Robertson DO Primary Care Provider [phone] Encounter Details Date Type Department Care Team (Latest Contact Info) Description 01/02/2004 Outpatient Historical [facility] Family Medicine- [place] [address] [place] [phone] Jillian Hsu MD NO ADDRESS ON FILE ASTHMA UNSPECIFIED (Primary Dx); ALLERGIC RHINITIS NOS Social History Tobacco Use Types Packs/Day Years Used Date Smoking Tobacco: Never Assessed Comments Unknown Sex and Gender Information Value Date Recorded Sex Assigned at Not on file Legal Sex Female 3:29 AM WINDOWS PHONE DEVELOPER Gender Identity Not on file Sexual Orientation Not on file documented as of this encounter Plan of Treatment Not on file documented as of this encounter Visit Diagnoses Diagnosis Unspecified asthma(493.90)- Primary Unspecified asthma Allergic rhinitis, cause unspecified documented in this encounter Care Teams Forest Ranger Technician Relationship Specialty Start Date End Date Shreyas Robertson DO [address] [place] [address] PCP - General Family Practice 08/03/12 documented as of this encounter
--- OUTSIDE RECORDS SUMMARY | 2025-02-28 17:42 | XMS_ITS | Encounter Summary ---
Author Organization [facility] Address [address] [place] [address] Care Team Providers Care Vascular Manager Name Role Phone Shreyas Robertson DO Primary Care Provider [phone] Encounter Details Date Type Department Care Team (Latest Contact Info) Description 01/08/2006 Outpatient Historical [facility] Family Medicine- [address] [place] [address] Shelby Arredondo NP NO ADDRESS ON FILE Acute Tonsillitis (Primary Dx) Social History Tobacco Use Types Packs/Day Years Used Date Smoking Tobacco: Never Assessed Comments Unknown Sex and Gender Information Value Date Recorded Sex Assigned at Not on file Legal Sex Female 3:29 AM SQL SERVER CONSULTANT Gender Identity Not on file Sexual Orientation Not on file documented as of this encounter Plan of Treatment Not on file documented as of this encounter Visit Diagnoses Diagnosis Acute tonsillitis- Primary documented in this encounter Care Teams Vascular Manager Relationship Specialty Start Date End Date Shreyas Robertson DO [address] [place] [address] PCP - General Family Practice 08/03/12 documented as of this encounter
--- OUTSIDE RECORDS SUMMARY | 2025-02-28 17:42 | XMS_ITS | Encounter Summary ---
Author Organization [facility] Address [address] [place] [address] Care Team Providers Care Assembler Type Bar And Segment Name Role Phone Shreyas Robertson DO Primary Care Provider [phone] Encounter Details Date Type Department Care Team (Latest Contact Info) Description 02/16/2004 Outpatient Historical [facility] Family Medicine [address] [place] [phone] Shelby Arredondo NP NO ADDRESS ON FILE OTITIS MEDIA NOS (Primary Dx); ACUTE SINUSITIS NOS; WBC DISEASE NEC Social History Tobacco Use Types Packs/Day Years Used Date Smoking Tobacco: Never Assessed Comments Unknown Sex and Gender Information Value Date Recorded Sex Assigned at Not on file Legal Sex Female 3:29 AM PATENT ATTORNEY Gender Identity Not on file Sexual Orientation Not on file documented as of this encounter Plan of Treatment Not on file documented as of this encounter Visit Diagnoses Diagnosis Unspecified otitis media- Primary Acute sinusitis, unspecified Other specified disease of white blood cells documented in this encounter Care Teams Assembler Type Bar And Segment Relationship Specialty Start Date End Date Shreyas Robertson DO [address] [place] [address] PCP - General Family Practice 08/03/12 documented as of this encounter
--- OUTSIDE RECORDS SUMMARY | 2025-02-28 17:42 | XMS_ITS | Encounter Summary ---
Author Organization [facility] Address [address] [place] [address] Care Team Providers Care Grinder Hardboard Name Role Phone Shreyas Robertson DO Primary Care Provider [phone] Encounter Details Date Type Department Care Team (Late st Contact Info) Description 06/15/2004 Outpatient Historical [facility] Shelby Arredondo, STEPH NO ADDRESS ON FILE Social History Tobacco Use Types Packs/Day Years Used Date Smoking Tobacco: Never Assessed Comments Unknown Sex and Gender Information Value Date Recorded Sex Assigned at Not on file Legal Sex Female 3:29 AM BUSINESS TECHNOLOGY TEACHER Gender Identity Not on file Sexual Orientation Not on file documented as of this encounter Plan of Treatment Not on file documented as of this encounter Visit Diagnoses Not on filedocumented in this encounter Care Teams Grinder Hardboard Relationship Specialty Start Date End Date Shreyas Robertson DO [address] [place] [address] PCP - General Family Practice 08/03/12 documented as of this encounter
--- OUTSIDE RECORDS SUMMARY | 2025-02-28 17:42 | XMS_ITS | Encounter Summary ---
Author Organization [facility] Address [address] [place] [address] Care Team Providers Care General Manager Name Role Phone Shreyas Robertson DO Primary Care Provider [phone] Encounter Details Date Type Department Care Team (Late st Contact Info) Description 06/04/2004 Outpatient Historical [facility] Antonio Hardin DO NO ADDRESS ON FILE Social History Tobacco Use Types Packs/Day Years Used Date Smoking Tobacco: Never Assessed Comments Unknown Sex and Gender Information Value Date Recorded Sex Assigned at Not on file Legal Sex Female 3:29 AM SOLUTION SPEC Gender Identity Not on file Sexual Orientation Not on file documented as of this encounter Plan of Treatment Not on file documented as of this encounter Visit Diagnoses Not on filedocumented in this encounter Care Teams General Manager Relationship Specialty Start Date End Date Shreyas Robertson DO [address] [place] [address] PCP - General Family Practice 08/03/12 documented as of this encounter
--- OUTSIDE RECORDS SUMMARY | 2025-02-28 17:42 | XMS_ITS | Encounter Summary ---
Author Organization [facility] Address [address] [place] [address] Care Team Providers Care Lead Game Designer Name Role Phone Shreyas Robertson Primary Care Provider [phone] Encounter Details Date Type Department Care Team (Late st Contact Info) Description 04/29/2007 Outpatient Historical [facility] Family Medicine- [place] [address] [place] [phone] Shelby Arredondo NP NO ADDRESS ON FILE Social History Tobacco Use Types Packs/Day Years Used Date Smoking Tobacco: Never Assessed Comments Unknown Sex and Gender Information Value Date Recorded Sex Assigned at Not on file Legal Sex Female 3:29 AM LEGISLATIVE DIRECTOR Gender Identity Not on file Sexual Orientation Not on file documented as of this encounter Progress Notes * Shelby Arredondo CRNP - 04/29/2007 12:00 AM CST Patient Name: Jessika Uribe DOS: 04/29/2007 : 2000 VITALS: Weight: 84.5 pounds. Pulse: 0. N BP: 0/0. N HEIGHT: 53 inches. TEMPERATURE: 98.0. SUBJECTIVE: 1. Stomach pain. 2. Recurrent cough. 3. Wheezing at times. OBJECTIVE: GENERAL: Mother had some Hytussin, it is no longer available on the market. She was using it as a cough suppressant. VITAL SIGNS: The patient is in no acute respiratory distress. She is afebrile. ENT: Exam showed the TM's have adequate light reflex. Oropharynx had some injection to the posterior pharyngeal wall. She has had a recent T&A. NECK: Neck is supple. HEART: Heart is normal sinus rate and rhythm. LUNGS: The lungs are CTA. IMPRESSION: Acute pharyngitis with cough. PLAN: 1. We want to restart her on her Singulair 5 mg to 1 tablet daily, that was called to [facility]'s pharmacy. 2. Albuterol inhaler one refill inhale one puff every four hours as needed cough or wheeze. I gave the mother some tubing to use as a spacer with that. 3. I put her on Zithromax 200 mg per 5 mL 30 mL 2 teaspoons now and then 1 teaspoon daily after meals. 4. Suggested any OTC decongestant. 5. I told her that I would not recommend a narcotic cough syrup for this. 6. She is to return if she has worsening signs or symptoms and as needed. Lina Arredondo RN-TYRA Hsu M.D. [facility] Electronically Signed by YULIYA Roblero 05/05/2007 17:27 , P, marco a Document #: [id number] cc: documented in this encounter Plan of Treatment Not on file documented as of this encounter Visit Diagnoses Not on filedocumented in this encounter Care Teams Lead Game Designer Relationship Specialty Start Date End Date Shreyas Robertson DO [address] [place] [address] PCP - General Family Practice 08/03/12 documented as of this encounter
--- OUTSIDE RECORDS SUMMARY | 2025-02-28 17:42 | XMS_ITS | Clinical Summary ---
Author Organization [facility] Address [address] [facility] [place] [address] Care Team Providers Care Jet Handler Name Role Phone Shreyas Robertson Primary Care Provider [phone] Allergies No known active allergies Medications montelukast (SINGULAIR) 5 mg Oral Chew Take 5 mg by mouth see administration instructions. Active cetirizine (ZYRTEC) 5 mg Oral tablet Take 5 mg by mouth daily. Active OTHER Allergy drops SL 2 in AM 1 drop in PM Active albuterol HFA 90 mcg inhaler Take 2 Puffs by inhalation every 6 hours as needed for Shortness of Breath. Active naproxen sodium (ALEVE) 220 mg Tablet Take 220 mg by mouth every 4 hours as needed for Pain, Moderate. Active fluticasone (FLONASE) 50 mcg/spray [place], Suspension Administer 2 Sprays in each nostril daily. 16 Gram 5 5 Active Active Problems Problem Noted Date Diagnosed Date Chronic maxillary sinusitis 07/23/2012 Chronic pansinusitis 06/07/2009 Allergic rhinitis 06/07/2009 Hypertrophy of nasal turbinates 06/07/2009 Immunizations [...] = 0.6 oz pur e alcohol) Comments No Sex and Gender Information Value Date Recorded Sex Assigned at Not on file Legal Sex Female 3:29 AM FILLER FEEDER Gender Identity Not on file Sexual Orientation Not on file Occupation Industry Job Start Date Job End Date Not on file Not on file Not on file Not on file Last Filed Vital Signs Vital Sign Reading Time Taken Comments Blood Pressure 109/63 02/28/2015 1:11 PM FILLER FEEDER Pulse 73 02/28/2015 1:11 PM FILLER FEEDER Temperature 36.8 C (98.2 F) 08/12/2012 1:22 PM CDT Respiratory Rate 20 08/12/2012 1:50 PM CDT Oxygen Saturation 96% 08/12/2012 1:50 PM CDT Inhaled Oxygen Concentration - - Weight 73 kg (161 lb) 02/28/2015 1:11 PM FILLER FEEDER Height 160 cm (5' 3 ) 02/28/2015 1:11 PM FILLER FEEDER Body Mass Index 28.52 02/28/2015 1:11 PM FILLER FEEDER Plan of Treatment Health Maintenance Due Date Last Done Comments DTAP/TDAP/TD VACCINES (6 - Tdap) 2009 03/24/2003, 08/09/1999, 1998, Additional history exists HPV VACCINES (1 - 3-dose series) 2013 CERVICAL CANCER SCREENING 05/11/2019 HPV/Cotest (21-29) 05/11/2019 PAP SMEAR 05/11/2019 INFLUENZA VACCINE (#1) 2024 HEPATITIS B VACCINES Completed 01/18/1999, 1998, 1998 Insurance [place] Advance Directives For more information, please contact: [phone] * Full Code (Latest Code Status on File) Date Activated Date Inactivated Comments 08/12/2012 12:06 PM 08/12/2012 4:05 PM Care Teams Jet Handler Relationship Specialty Start Date End Date Shreyas Robertson DO [address] [place] [address] PCP - General Family Practice 08/03/12
--- OUTSIDE RECORDS SUMMARY | 2025-02-28 17:42 | XMS_ITS | Encounter Summary ---
Author Organization [facility] Address [address] [place] [address] Care Team Providers Care Animal Rescuer Name Role Phone Shreyas Robertson DO Primary Care Provider [phone] Encounter Details Date Type Department Care Team (Latest Contact Info) Description 02/20/2004 Outpatient Historical [facility] Family Medicine- [address] [address] [place] [address] Shelby Arredondo NP NO ADDRESS ON FILE ACUTE BRONCHITIS (Primary Dx) Social History Tobacco Use Types Packs/Day Years Used Date Smoking Tobacco: Never Assessed Comments Unknown Sex and Gender Information Value Date Recorded Sex Assigned at Not on file Legal Sex Female 3:29 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
--- OUTSIDE RECORDS SUMMARY | 2025-02-28 17:42 | XMS_ITS | Encounter Summary ---
Author Organization [facility] Address [address] [place] [address] Care Team Providers Care Gear Room Keeper Name Role Phone Shreyas Robertson DO Primary Care Provider [phone] Encounter Details Date Type Department Care Team (Latest Contact Info) Description 01/02/2005 Outpatient Historical [facility] Family Medicine- [address] [address] [place] [address] Shelby Arredondo NP NO ADDRESS ON FILE ACUTE SINUSITIS NOS (Primary Dx) Social History Tobacco Use Types Packs/Day Years Used Date Smoking Tobacco: Never Assessed Comments Unknown Sex and Gender Information Value Date Recorded Sex Assigned at Not on file Legal Sex Female 3:29 AM ARTIFICIAL SNOW MAKING MACHINE OPERATOR Gender Identity Not on file Sexual Orientation Not on file documented as of this encounter Plan of Treatment Not on file documented as of this encounter Visit Diagnoses Diagnosis Acute sinusitis, unspecified- Primary documented in this encounter Care Teams Gear Room Keeper Relationship Specialty Start Date End Date Shreyas Robertson DO [address] [place] [address] PCP - General Family Practice 08/03/12 documented as of this encounter
--- OUTSIDE RECORDS SUMMARY | 2025-02-28 17:42 | XMS_ITS | Encounter Summary ---
Author Organization [facility] Address [address] [place] [address] Care Team Providers Care Mirror Department Supervisor Name Role Phone Shreyas Robertson DO Primary Care Provider [phone] Encounter Details Date Type Department Care Team (Latest Contact Info) Description 06/04/[address] [facility] Family Medicine [address] [phone] Shelby Arredondo NP NO ADDRESS ON FILE MYCOPLASMA/EATON'S/P PLO INFECTION (Primary Dx); ACUTE PHARYNGITIS; ACUTE BRONCHITIS Social History Tobacco Use Types Packs/Day Years Used Date Smoking Tobacco: Never Assessed Comments Unknown Sex and Gender Information Value Date Recorded Sex Assigned at Not on file Legal Sex Female 3:29 AM PATTERN CHART WRITER Gender Identity Not on file Sexual Orientation Not on file documented as of this encounter Plan of Treatment Not on file documented as of this encounter Visit Diagnoses Diagnosis Mycoplasma infection in conditions classified elsewhere and of unspecified site- Primary Acute pharyngitis Acute bronchitis documented in this encounter Care Teams Mirror Department Supervisor Relationship Specialty Start Date End Date Shreyas Robertson DO [address] [place] [address] PCP - General Family Practice 08/03/12 documented as of this encounter
--- OUTSIDE RECORDS SUMMARY | 2025-02-28 17:42 | XMS_ITS | Encounter Summary ---
Author Organization [facility] Address [address] [place] [address] Care Team Providers Care Processing Spec Name Role Phone Shreyas Robertson DO Primary Care Provider [phone] Encounter Details Date Type Department Care Team (Late st Contact Info) Description 04/22/2006 Outpatient Historical [facility] Imaging Services-[place] [address] [place] [address] Social History Tobacco Use Types Packs/Day Years Used Date Smoking Tobacco: Never Assessed Comments Unknown Sex and Gender Information Value Date Recorded Sex Assigned at Not on file Legal Sex Female 3:29 AM RING ROLLING MACHINE OPERATOR Gender Identity Not on file Sexual Orientation Not on file documented as of this encounter Plan of Treatment Not on file documented as of this encounter Visit Diagnoses Not on filedocumented in this encounter Care Teams Processing Spec Relationship Specialty Start Date End Date Shreyas Robertson DO [address] [place] [address] PCP - General Family Practice 08/03/12 documented as of this encounter
--- OUTSIDE RECORDS SUMMARY | 2025-02-28 17:42 | XMS_ITS | Encounter Summary ---
Author Organization [facility] Address [address] [place] [address] Care Team Providers Care Pound Attendant Name Role Phone Shreyas Robertson DO Primary Care Provider [phone] Encounter Details Date Type Department Care Team (Latest Contact Info) Description 06/15/[address] [facility] Family Medicine [address] [phone] Shelby Arredondo NP NO ADDRESS ON FILE ACUTE BRONCHITIS (Primary Dx) Social History Tobacco Use Types Packs/Day Years Used Date Smoking Tobacco: Never Assessed Comments Unknown Sex and Gender Information Value Date Recorded Sex Assigned at Not on file Legal Sex Female 3:29 AM TOBACCO FEEDER CATCHER Gender Identity Not on file Sexual Orientation Not on file documented as of this encounter Plan of Treatment Not on file documented as of this encounter Visit Diagnoses Diagnosis Acute bronchitis- Primary documented in this encounter Care Teams Pound Attendant Relationship Specialty Start Date End Date Shreyas Robertson DO [address] [place] [address] PCP - General Family Practice 08/03/12 documented as of this encounter
--- OUTSIDE RECORDS SUMMARY | 2025-02-28 17:42 | XMS_ITS | Encounter Summary ---
Author Organization [facility] Address [address] [place] [address] Care Team Providers Care Reinforced Steel Placing Supervisor Name Role Phone Shreyas Robertson DO Primary Care Provider [phone] Encounter Details Date Type Department Care Team (Latest Contact Info) Description 01/17/2004 Outpatient Historical [facility] Family Medicine- [address] [place] [phone] Shelby Arredondo NP NO ADDRESS ON FILE OTITIS MEDIA NOS (Primary Dx); ACUTE BRONCHITIS Social History Tobacco Use Types Packs/Day Years Used Date Smoking Tobacco: Never Assessed Comments Unknown Sex and Gender Information Value Date Recorded Sex Assigned at Not on file Legal Sex Female 3:29 AM SAFETY SEALER Gender Identity Not on file Sexual Orientation Not on file documented as of this encounter Plan of Treatment Not on file documented as of this encounter Visit Diagnoses Diagnosis Unspecified otitis media- Primary Acute bronchitis documented in this encounter Care Teams Reinforced Steel Placing Supervisor Relationship Specialty Start Date End Date Shreyas Robertson DO [address] [place] [address] PCP - General Family Practice 08/03/12 documented as of this encounter
--- OUTSIDE RECORDS SUMMARY | 2025-02-28 17:42 | XMS_ITS | Encounter Summary ---
Author Organization [facility] Address [address] [place] [address] Care Team Providers Care Architectural Draftsperson Name Role Phone Shreyas Robertson DO Primary Care Provider [phone] Encounter Details Date Type Department Care Team (Latest Contact Info) Description 08/01/2006 Outpatient Historical [facility] [address] [place] [address] Kirill Funez MD NO ADDRESS ON FILE Chronic Tonsillitis (Primary Dx); Hypertrophy Tonsils/Adenoids Social History Tobacco Use Types Packs/Day Years Used Date Smoking Tobacco: Never Assessed Comments Unknown Sex and Gender Information Value Date Recorded Sex Assigned at Not on file Legal Sex Female 3:29 AM GEAR SHAPER Gender Identity Not on file Sexual Orientation Not on file documented as of this encounter Plan of Treatment Not on file documented as of this encounter Visit Diagnoses Diagnosis Chronic tonsillitis- Primary Hypertrophy tonsils/adenoids Hypertrophy of tonsil with adenoids documented in this encounter Care Teams Architectural Draftsperson Relationship Specialty Start Date End Date Shreyas Robertson DO [address] [place] [address] PCP - General Family Practice 08/03/12 documented as of this encounter
--- OUTSIDE RECORDS SUMMARY | 2025-02-28 17:42 | XMS_ITS | Encounter Summary ---
Author Organization [facility] Address [address] [place] [address] Care Team Providers Care Rug Cleaner Hand Name Role Phone Srheyas Robertson DO Primary Care Provider [phone] Encounter Details Date Type Department Care Team (Latest Contact Info) Description 04/16/2004 Outpatient Historical [facility] Family Medicine [address] [phone] Shelby Arredondo NP NO ADDRESS ON FILE ACUTE TONSILLITIS (Primary Dx); ACUTE SINUSITIS NOS; FLU W RESP MANIFEST NEC Social History Tobacco Use Types Packs/Day Years Used Date Smoking Tobacco: Never Assessed Comments Unknown Sex and Gender Information Value Date Recorded Sex Assigned at Not on file Legal Sex Female 3:29 AM MARKETING SEGMENT MANAGER Gender Identity Not on file Sexual Orientation Not on file documented as of this encounter Plan of Treatment Not on file documented as of this encounter Visit Diagnoses Diagnosis Acute tonsillitis- Primary Acute sinusitis, unspecified Influenza with other respiratory manifestations documented in this encounter Care Teams Rug Cleaner Hand Relationship Specialty Start Date End Date Shreyas Robertson DO [address] [place] [address] PCP - General Family Practice 08/03/12 documented as of this encounter
--- NOTE | 2025-02-28 18:08 | ED_ITS ---
HPI - Anxiety General: Chief Complaint: Anxiety Stated Complaint: Anxiety Time Seen by Provider: 02/28/25 17:48 Source: patient and family Mode of arrival: ambulatory Limitations: no limitations History of Present Illness: Patient is a 24-year-old female presents to ED today with symptoms related to a THC overdose. Patient states she felt fine earlier today but states about 30 minutes after taking a third of a vampire kiss THC gummy she started feeling very anxious, having sob/chest pain, floating feelings, drowsiness/couldn't keep eyes open, and jerky like movements. Gummies are reportedly 100mg each and she took a third so about 30mg. She feels somewhat better upon arrival to ED but still drowsy. She states she has never had these gummies before and it was a new strain . Ingestion was about 3-4 hours ago. MD complaint: anxiety and other (THC overdose-accidental) Onset (ago): hour(s) Symptoms: dyspnea, chest pain, extremity numbness/tingling, perioral numbness/tingling and dry mouth Severity: moderate Quality: constant Place: home Relieving factors: nothing Associated symptoms: Reports chest pain (resolved); Deny fever(s), headache(s), nausea, palpitations, syncope or vomiting Related Data Home Medications ?Medication ?Instructions ?Recorded ?Confirmed levothyroxine 13 mcg capsule 25 mcg PO DAILY 01/31/21 12/29/24 Previous Rx's ?Medication ?Instructions ?Recorded fluticasone propionate 50 2 spray intranasal DAILY #15 .8 mL 02/09/20 mcg/actuation nasal spray,suspension (Allergy Relief (fluticasone)) cetirizine 10 mg tablet (Zyrtec) 10 mg PO DAILY #30 ta bs 02/29/20 citalopram 20 mg tablet (Celexa) 20 mg PO .morning #90 tabs 12/06/24 buspirone 15 mg tablet 15 mg PO BID #180 tabs 12/29 Allergies Allergy/AdvReac Type Severity Reaction Status Date / Time No Known Allergies Allergy Verified 02/28/25 17:42 Review of Systems Const: Denies: fever(s) Eyes: Reports: other (eyes heavy, dry) ENMT: Reports: other (dry mouth) Card: Reports: chest pain (resolved); Denies: palpitations, irregular heart rhythm, edema, swelling of feet/ankles, syncope, pre-syncope, dyspnea on exertion or orthopnea Resp: Denies: productive cough, non-productive cough, pain on inspiration or chest congestion GI: Denies: abdominal pain, nausea, vomiting or diarrhea Musc: Denies: neck pain, back pain, extremity pain, extremity swelling, joint pain or joint swelling Skin/Breast: Denies: rash Neuro: Reports: other (drowsy); Denies: headache(s) or seizure-like activity PFSH ED PFSH: Medical History Obsessive-compulsive disorder with good or fair insight Generalized anxiety disorder Major depressive disorder, recurrent episode, moderate with anxious distress Psychiatric care Environmental and seasonal allergies Surgical History History of oral surgery History of sinus surgery History of tonsillectomy and adenoidectomy Family History Other Cancer Hypertension Stroke Denies family history of Diabetes Dementia Social History Smoking and tobacco/nicotine status: never used tobacco/nicotine Second hand smoke exposure: No Alcohol intake: never Substance/Drug Use: never Adopted: No Caregiver/support person: No Lives independently: Yes Household members: family Housing: House Marital status: Single Number of children: 0 service: No 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al status: unemployed and student 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: [employer] Student Do you think of yourself as: Straight/Heterosexual Current gender identity: Female Physical Exam Const: COMMON NORMALS: average body habitus, patient oriented x3, healthy appearing, alert and well nourished GENERAL APPEARANCE: cooperative OTHER: pt is extremely drowsy; she is able to answer all of my questions appropriately and provide a history HENMT: COMMON NORMALS: normocephalic and atraumatic HEAD & SCALP: normal to inspection, normocephalic and atraumatic FACE & SINUS: normal facial exam and face symmetric Eye: COMMON NORMALS: Equal, round and reactive pupils present and EOMs intact bilaterally GENERAL EYE: normal light reflex PUPIL: Yes Equal, round and reactive pupils present DIRECT OPHTHALMOSCOPY: Yes normal light reflex OTHER: conjunctival injection Neck/C-Spine: COMMON NORMALS: full ROM, no lymphadenopathy and no meningeal signs Resp: COMMON NORMALS: normal respiratory effort and clear to auscultation bilaterally AUSCULTATION: clear to auscultation bilaterally Cardio: COMMON NORMALS: regular rate and regular rhythm RATE: regular rate RHYTHM: regular rhythm Extremity: GENERAL: Yes normal exam except as noted Neuro: DAVI COMA SCALE: document GCS findings [place] coma scale eye opening: Spontaneous Davi coma scale verbal response: Orientated Davi coma scale motor response: Obey commands Davi coma scale total score: 15 COMMON NORMALS: patient oriented x3, CN's II-XII intact bilaterally, moves all extremities, no focal motor deficits and no sensory deficits noted SENSORIUM/ORIENTATION: Yes alert MENINGEAL SIGNS: Yes no meningeal signs Skin: COMMON NORMALS: no rashes or lesions noted GENERAL SKIN EXAM: no rashes or lesions noted Course ED course: Discussed case with [facility] who stated she was past the peak. They did not expect any toxic symptoms from the amount that she ingested. Stated there was nothing to do further from an emergency standpoint and patient can safely be discharged. They did discuss how symptoms can last several hours/up to 8 to 12 hours. Vital Signs: Vital signs: Vital Signs Temperature 97.7 F 02/28/25 17:36 Pulse Rate 100 02/28/25 17:36 Blood Pressure 123/86 02/28/25 17:36 Pulse Oximetry 99 02/28/25 17:36 Oxygen Delivery Me thod Room Air 02/28/25 17:36 MDM - Anxiety Medical Decision Making Patient is a 24-year-old female here for an accidental THC ingestion. She reportedly took 30 mg of THC approximately 3 to 4 hours ago. She apparently did not realize how strong the gummy was and stated it was a new strain of THC. Patient has classic THC overdose and symptoms including dry mouth, dry eyes, drowsiness, anxiety, some mild myoclonic jerking, among others. She does feel better upon arrival here. Parents feel comfortable taking her home. Return to ED precautions discussed. Medical Records I reviewed the patient's medical records. No radiology studies performed this visit Discharge Plan Discharge Patient Disposition: Home Clinical Impression: Accidental cannabis overdose Condition: Stable Prescriptions: No Action levothyroxine 13 mcg capsule 25 mcg PO DAILY buspirone 15 mg tablet 15 mg PO BID Qty: 180 2RF Rx Instructions: Take one tablet at 8 am and 4 pm fluticasone propionate [Allergy Relief (fluticasone)] 50 mcg/actuation spray,suspension 2 spray INTRANASAL DAILY Qty: 15.8 5RF cetirizine [Zyrtec] 10 mg tablet 10 mg PO DAILY Qty: 30 2RF citalopram [Celexa] 20 mg tablet 20 mg PO .morning Qty: 90 2RF Rx Instructions: Take one tablet every morning Discharge Orders: Discharge ED (Routine); Ordered 02/28/25 Ordered By: Mariposa Laurent Referrals: Willis Edwards MD [Primary Care Provider, Family Practice] Patient Instructions: Patient Portal & Ale Instructions Print Language: Brazilian Coding Level of Care Code ED Drafting Instructor for Leia Donohue
[2025-02-28 18:31] VITALS: BP 120/74; PULSE 68; RESP 16; O2SAT 98
== END 2025-02-28 18:32 | disposition home or self-care (01) ==
PROVIDERS: Emergency Provider Physician Assistant; PCP Family Medicine
DX: T40.711A Poisoning by cannabis, accidental (unintentional), initial encounter (principal); X58.XXXA Exposure to other specified factors, initial encounter; F12.90 Cannabis use, unspecified, uncomplicated
CPT/HCPCS: 99282